=== PATIENT | female | born 1950 | race Caucasian/White ===

== ENCOUNTER 2017-05-06 08:19 | Emergency (ER) | payer OTHER ==
[~2017-05-06] VITALS: Ht 167.6 cm; Wt 87.6 kg
[2017-05-06 08:23] VITALS: BP 172/79; PULSE 73; RESP 18; TEMP 98.1; O2SAT 95
--- NOTE | 2017-05-06 08:41 | PD ---
HPI Chief Complaint: Abnormal Results Time Seen by Provider: 08:31 Travel History International Travel<30 days: No Contact w/Intl Traveler<30days: No Traveled to known affect area: No History of Present Illness HPI 66-year-old female was referred to ED for evaluation of abnormal lab tests. Patient had routine blood work done yesterday at outpatient clinic. Patient accidentally had CK-MB done and was 5.9%. Patient was referred to ED for evaluation. Patient denies any chest pain or shortness of breath. Patient denies any history of cardiac problem. Patient has history hypertension and hyperlipidemia. Patient is a smoker. Patient has family history of cardiac disease. Patient denies history diabetes. PFSH Social History Tobacco Use: No Allergies-Medications (Allergen,Severity, Reaction): Coded Allergies: No Known Allergies (Unverified , 05/06/17) Reported Meds & Prescriptions Reported Meds & Active Scripts Active Reported Hydrochlorothiazide 25 Mg Tab 25 Mg PO DAILY Doxazosin (Doxazosin Mesylate) 2 Mg Tab 2 Mg PO DAILY Metoprolol Succinate ER 24 HR (Metoprolol Succinate) 25 Mg Tab 25 Mg PO DAILY Review of Systems General / Constitutional: No: Fever Eyes: No: Visual changes HENT: No: Headaches Cardiovascular: No: Chest Pain or Discomfort Respiratory: No: Shortness of Breath Gastrointestinal: No: Abdominal Pain Genitourinary: No: Dysuria Musculoskeletal: No: Pain Skin: No Rash Neurologic: No: Weakness Psychiatric: No: Depression Endocrine: No: Polydipsia Hematologic/Lymphatic: No: Easy Bruising Physical Exam Narrative GENERAL: Well-nourished, well-developed patient. SKIN: Focused skin assessment warm/dry. HEAD: Normocephalic. EYES: No scleral icterus. No injection or drainage. NECK: Supple, trachea midline. No JVD or lymphadenopathy. CARDIOVASCULAR: Regular rate and rhythm without murmurs, gallops, or rubs. RESPIRATORY: Breath sounds equal bilaterally. No accessory muscle use. GASTROINTESTINAL: Abdomen soft, non-tender, nondistended. MUSCULOSKELETAL: No cyanosis, or edema. BACK: Nontender without obvious deformity. No CVA tenderness. Neurologic exam normal. Data Data Last Documented VS Vital Signs Date Time Temp Pulse Resp B/P Pulse Ox O2 Delivery O2 Flow Rate FiO2 05/06/17 09:02 99 Room Air 05/06/17 08:23 98.1 73 18 172/79 Orders Electrocardiogram (05/06/17 08:32) Complete Blood Count With Diff (05/06/17 08:32) Basic Metabolic Panel (Bmp) (05/06/17 08:32) Creatine Kinase (Cpk) (05/06/17 08:32) Troponin I (05/06/17 08:32) Prothrombin Time / Inr (Pt) (05/06/17 08:32) Act Partial Throm Time (Ptt) (05/06/17 08:32) Chest, Single Ap (05/06/17 08:32) Iv Access Insert/Monitor (05/06/17 08:32) Ecg Monitoring (05/06/17 08:32) Oximetry (05/06/17 08:32) Labs Laboratory Tests Test 05/06/17 08:57 White Blood Count 9.1 TH/MM3 Red Blood Count 4.54 MIL/MM3 Hemoglobin 14.4 GM/DL Hematocrit 43.0 % Mean Corpuscular Volume 94.7 FL Mean Corpuscular Hemoglobin 31.8 PG Mean Corpuscular Hemoglobin 33.6 % Concent Red Cell Distribution Width 13.4 % Platelet Count 209 TH/MM3 Mean Platelet Volume 8.0 FL Neutrophils (%) (Auto) 59.0 % Lymphocytes (%) (Auto) 31.5 % Monocytes (%) (Auto) 7.8 % Eosinophils (%) (Auto) 0.9 % Basophils (%) (Auto) 0.8 % Neutrophils # (Auto) 5.3 TH/MM3 Lymphocytes # (Auto) 2.9 TH/MM3 Monocytes # (Auto) 0.7 TH/MM3 Eosinophils # (Auto) 0.1 TH/MM3 Basophils # (Auto) 0.1 TH/MM3 CBC Comment DIFF FINAL Differential Comment Prothrombin Time 10.8 SEC Prothromb Time International 1.0 RATIO Ratio Activated Partial 28.0 SEC Thromboplast Time Sodium Level 141 MEQ/L Potassium Level 3.6 MEQ/L Chloride Level 106 MEQ/L Carbon Dioxide Level 26.8 MEQ/L Anion Gap 8 MEQ/L Blood Urea Nitrogen 19 MG/DL Creatinine 0.72 MG/DL Estimat Glomerular Filtration 81 ML/MIN Rate Random Glucose 99 MG/DL Calcium Level 9.2 MG/DL Total Creatine Kinase 186 U/L Troponin I LESS THAN 0.02 NG/ML MDM Medical Decision Making Medical Screen Exam Complete: Yes Emergency Medical Condition: Yes Interpretation(s) Last Impressions Chest X-Ray 05/06/17 0832 Signed Impressions: Service Date/Time: Saturday, May 06, 2017 08:39 - CONCLUSION: Minimal streakiness within the left lung base consistent with atelectasis and/or minimal infiltrate. Clinical correlation is recommended. Huseyin Ram MD 9:40 AM. CBC within normal limit. Differential Diagnosis Differential diagnoses including abnormal blood tests results, IA. Narrative Course 66-year-old female with elevated CK-MB on blood tests as outpatient yesterday. Patient's asymptomatic. Cardiac enzymes normal today. Patient advised to follow up with local physician. Diagnosis Primary Impression: Abnormal cardiac enzyme level Patient Instructions: General Instructions Additional Instructions: Follow-up as needed. Med/Other Pt SpecificInfo: No Change to Meds Disposition: 01 DISCHARGE HOME Condition: Stable Jorge Luther MD May 06, 2017 08:41
[2017-05-06] MEDS ORDERED: DOXA1TAB35 PO (08:48)
[2017-05-06] MEDS ORDERED: HYDR25TA5 PO (08:48)
[2017-05-06] MEDS ORDERED: METO25TA6 PO (08:48)
[2017-05-06 09:02] VITALS: O2SAT 99
[2017-05-06 09:06] LABS: AUTOMATED NEUTROPHIL # 5.3 TH/MM3 (1.8-7.7); BASOPHIL # 0.1 TH/MM3 (0-0.2); BASOPHIL % 0.8 % (0.0-2.0); EOSINOPHIL # 0.1 TH/MM3 (0-0.4); EOSINOPHIL % 0.9 % (0.0-4.0); LYMPH % 31.5 % (9.0-44.0); LYMPHOCYTE # 2.9 TH/MM3 (1.0-4.8); MEAN CELL VOLUME 94.7 FL (80.0-100.0); MEAN CORPUSCULAR HEMOGLOBIN 31.8 PG (27.0-34.0); MEAN CORPUSCULAR HGB CONC 33.6 % (32.0-36.0); MONO % 7.8 % (0.0-8.0); PLATELET COUNT 209 TH/MM3 (150-450); RED BLOOD COUNT 4.54 MIL/MM3 (4.00-5.30); RED CELL DISTRIBUTION WIDTH 13.4 % (11.6-17.2); WHITE BLOOD COUNT 9.1 TH/MM3 (4.0-11.0)
[2017-05-06 09:07] LABS: HEMO FLAGS DIFF FINAL
--- NOTE | 2017-05-06 09:09 | RADRPT ---
EXAM DATE/TIME: 05/06/2017 08:39 [facility] COMPARISON: No previous studies available for comparison. INDICATIONS : Elevated CK-MB on outpatient lab results from yesterday. Patient states no other symptoms. MEDICAL HISTORY : Hypercholesterolemia. Hypertension Smoker. SURGICAL HISTORY : Hysterectomy. ENCOUNTER: Initial ACUITY: 1 day PAIN SCORE: 0/10 LOCATION: chest FINDINGS: Minimal streakiness is noted within the left lung base consistent with atelectasis and/or minimal inf iltrate. Clinical correlation is recommended. The heart is normal. The right lung is clear. Degenerat alisia changes are noted throughout the thoracic spine. CONCLUSION: Minimal streakiness within the left lung base consistent with atelectasis and/or minimal infiltrate. Clinical correlation is recommended. Huseyin Ram MD on May 06, 2017 at 9:06 Board Certified Radiologist. This report was verified electronically.
[2017-05-06 09:19] LABS: PROTHROMBIN TIME - PATIENT 10.8 SEC (9.8-11.6)
[2017-05-06 09:51] LABS: BICARBONATE 26.8 MEQ/L (21.0-32.0)
[2017-05-06 09:54] LABS: ANION GAP 8 MEQ/L (5-15); CHLORIDE 106 MEQ/L (98-107); POTASSIUM 3.6 MEQ/L (3.5-5.1); SODIUM (NA) 141 MEQ/L (136-145)
[2017-05-06 09:55] LABS: GLOMERULAR FILTRATION RATE 81 ML/MIN (>89)
[2017-05-06 09:58] LABS: CREATINE KINASE 186 U/L (26-192)
[2017-05-06 10:01] LABS: BLOOD UREA NITROGEN 19 MG/DL (7-18)
--- NOTE | 2017-05-06 13:49 | EKG ---
Date Performed: 05/06/2017 Time Performed: 08:32:46 PTAGE: 66 years EKG: Sinus rhythm WITH OCCASIONAL VENTRICULAR PREMATURE COMPLEXES BORDERLINE ECG INTERPRETATION BASED ON A DEFAULT AGE OF 40 YEARS NO PREVIOUS TRACING DOCTOR: Trenton Meléndez Interpretating Date/Time 05/06/2017 13:48:54
== END 2017-05-06 10:32 | disposition home or self-care (01) ==
LOC: PHED 08:19
DX: R79.89 Other specified abnormal findings of blood chemistry (principal); J98.11 Atelectasis; I10 Essential (primary) hypertension; I49.3 Ventricular premature depolarization; E78.5 Hyperlipidemia, unspecified
CPT/HCPCS: 71010; 80048; 82550; 84484; 85025; 85610; 85730; 93005; 99285

== ENCOUNTER 2018-03-15 18:07 | Emergency (ER) | payer OTHER ==
[~2018-03-15] VITALS: Ht 167.6 cm; Wt 87.9 kg
[~2018-03-15 18:07] MED LIST: DOXA1TAB35 PO; HYDR25TA5 PO; METO1TAB42 PO
[2018-03-15 18:12] VITALS: BP 125/60; PULSE 87; RESP 16; TEMP 97.7; O2SAT 97
[2018-03-15] MEDS ORDERED: ATOR20TA15 PO (18:24)
[2018-03-15] MEDS ORDERED: IBUPROFEN 800 MG TAB PO ONE (18:30)
[2018-03-15] MEDS ORDERED: diphenhydrAMINE HCL 25 MG CAP PO ONE (18:45)
[2018-03-15] MEDS ORDERED: BARIATRIC ROLLA1 MIS (18:47)
--- NOTE | 2018-03-15 18:53 | PD ---
HPI Chief Complaint: Bite or Sting Time Seen by Provider: 18:18 Travel History International Travel<30 days: No Contact w/Intl Traveler<30days: No Traveled to known affect area: No History of Present Illness HPI 67-year-old [id number] female presents the ED for evaluation of right hand swelling. Onset after being stung by a wasp while doing yard work just before arrival. Patient denies numbness, tingling, weakness, limitations range of motion of the extremity. She denies close throat sensation, shortness of breath, wheezing. She denies known allergy to bee stings. She treated at home with ice with no improvement of symptoms. PFSH Past Medical History Hx Anticoagulant Therapy: Yes (asa 81mg) Cardiovascular Problems: Yes (htn on meds) High Cholesterol: Yes COPD: Yes Diminished Hearing: No Hypertension: Yes Respiratory: Yes (copd sleep apnea cpap) Immunizations Current: Yes Tetanus Vaccination: Unknown Influenza Vaccination: Yes ?: Not Past Surgical History Hysterectomy: Yes Social History Alcohol Use: Yes (ONCE PER WEEK) Tobacco Use: Yes (09/23 pk) Substance Use: No Allergies-Medications (Allergen,Severity, Reaction): Coded Allergies: No Known Allergies (Unverified Adverse Reaction, Unknown, 03/15/18) Reported Meds & Prescriptions Reported Meds & Active Scripts Active Reported Atorvastatin (Atorvastatin Calcium) 20 Mg Tab 20 Mg PO HS Hydrochlorothiazide 25 Mg Tab 25 Mg PO DAILY Doxazosin (Doxazosin Mesylate) 2 Mg Tab 2 Mg PO DAILY Metoprolol Succinate ER 24 HR (Metoprolol Succinate) 25 Mg Tab 25 Mg PO DAILY Review of Systems Except as stated in HPI: all other systems reviewed are Neg Physical Exam Narrative GENERAL: Well-nourished, well-developed white female no acute distress. SKIN: Warm and dry. HEAD: Normocephalic. Atraumatic. EYES: No scleral icterus. No injection or drainage. PERRLA. EOMI. ENT: Pearly smith tympanic membranes bilaterally. Nasal mucosa is moist. Oropharynx without erythema, edema or exudate. Uvula midline. Airway patent. NECK: Supple, trachea midline. No JVD or lymphadenopathy. CARDIOVASCULAR: Regular rate and rhythm without murmurs, gallops, or rubs. RESPIRATORY: Breath sounds clear and equal bilaterally. No accessory muscle use. GASTROINTESTINAL: Abdomen soft, non-tender, nondistended. + Bowel sounds MUSCULOSKELETAL: No cyanosis. Walks with a normal gait. FOCUSED RIGHT UPPER EXTREMITY EXAM: 2+ radial pulse. Small puncture wound on the dorsum, PIP middle finger. Edema of the dorsum of the hand that extends nearly to the wrist. Strong finger to thumb opposition with each digit. Patient retains full, active, painless R OM of the extremity. Neurovascularly intact distally on each digit. BACK: Nontender without obvious deformity. No CVA tenderness. Data Data Last Documented VS Vital Signs Date Time Temp Pulse Resp B/P (MAP) Pulse Ox O2 Delivery O2 Flow Rate FiO2 03/15/18 18:12 97.7 87 16 125/60 (81) 97 Orders Orders Ibuprofen (Motrin) (03/15/18 18:30) Ice/Cold Pack (03/15/18 18:17) Diphenhydramine (Benadryl) (03/15/18 18:45) Ed Discharge Order (03/15/18 20:01) [facility] Medical Decision Making Medical Screen Exam Complete: Yes Emergency Medical Condition: Yes Differential Diagnosis Wasp sting versus edema versus allergic reaction versus other Narrative Course 67-year-old [id number] female presents the ED for evaluation of right hand swelling. Onset after being stung by a wasp while doing yard work just before arrival. She denies close throat sensation, shortness of breath, wheezing. She denies known allergy to bee stings. Vitals reviewed. Physical exam reveals localized edema of the hand which extends to the wrist. Patient was administered ibuprofen, Benadryl, ice pack. Patient was monitored in the ED for approximately 90 minutes. No systemic symptoms noted. She is instructed to continue with symptomatic treatment, follow with the primary care provider. We discussed reasons to return to the ED. She is instructed to call 911 if she has any breathing difficulties. She is stable discharged home. Diagnosis Primary Impression: Wasp sting Qualified Codes: T63.461A - Toxic effect of venom of wasps, accidental ( unintentional), initial encounter Referrals: Primary Care Physician Additional Instructions: Rest, hydrate. Continue OTC medication such as ibuprofen or Tylenol as needed for pain. Benadryl may also help to limit the local inflammation. Next doses due at 1030pm Apply ice 10-15 minute sessions a few times a day. Return to normal, gentle activity as tolerated. Follow-up with the primary care provider. Return to the ED for any urgent or emergent medical condition Disposition: 01 DISCHARGE HOME Condition: Stable Kathy Herrera Mar 15, 2018 18:53
== END 2018-03-15 20:21 | disposition home or self-care (01) ==
LOC: PHEFT 18:07
DX: T63.461A Toxic effect of venom of wasps, accidental (unintentional), initial encounter (principal); J44.9 Chronic obstructive pulmonary disease, unspecified; E78.00 Pure hypercholesterolemia, unspecified; I10 Essential (primary) hypertension; Y93.H2 Activity, gardening and landscaping; Z79.82 Long term (current) use of aspirin
CPT/HCPCS: 99282